=== PATIENT | female | born 1965 | race African-American/Black ===

== ENCOUNTER 2020-01-21 17:39 | Inpatient (IN) | payer MEDICAID ==
[~2020-01-21] VITALS: Ht 149.9 cm; Wt 66.6 kg
[~2020-01-21 17:39] MED LIST: DULO60CA7 PO; ESTR0.5T PO; METH750T2 PO; PREG25CA PO; ZOLP10TA PO
[2020-01-21] MEDS ORDERED: BISACODYL 10 MG SUPP PR PRN (18:00)
[2020-01-21] MEDS ORDERED: ACETAMINOPHEN 325 MG TABLET PO PRN (18:00)
[2020-01-21] MEDS ORDERED: POLYETHYLENE GLYCOL 17 GM PACKET PO PRN (18:00)
[2020-01-21 18:15] VITALS: BP 143/90
[2020-01-21 19:45] LABS: CHOL/HDL RATIO 3.5; FREE T4 (FREE THYROXINE) 1.34 ng/dL (0.76-1.46); LDL/HDL RATIO 2.2 (0.5-3.0)
[2020-01-21 20:31] VITALS: BP 150/95
[2020-01-21] MEDS ORDERED: DOCUSATE 100 MG CAPSULE PO PRN (21:00)
[2020-01-21] MEDS: ONDANSETRON ODT 4 MG PO PRN (21:14)
[2020-01-22 07:08] VITALS: BP 108/70
[2020-01-22] MEDS ORDERED: RIBO400T PO (07:36)
[2020-01-22] MEDS ORDERED: PANT40TA3 PO (07:36)
[2020-01-22] MEDS ORDERED: DIVA500T17 PO (07:36)
[2020-01-22] MEDS ORDERED: QUET50TA5 PO (07:36)
[2020-01-22] MEDS ORDERED: RIZA10TA20 PO (07:36)
[2020-01-22] MEDS ORDERED: DULO60CA7 PO (07:36)
[2020-01-22] MEDS ORDERED: METO10TA82 PO (07:36)
[2020-01-22] MEDS ORDERED: TIZA4TAB9 PO (07:36)
[2020-01-22] MEDS ORDERED: AMIT25TA PO (07:36)
[2020-01-22] MEDS ORDERED: CELE-47 PO (07:36)
[2020-01-22] MEDS ORDERED: HYDR-826 PO (07:36)
[2020-01-22] MEDS ORDERED: DICY20TA3 PO (07:36)
[2020-01-22] MEDS ORDERED: OMEP20TA62 PO (07:36)
[2020-01-22] MEDS ORDERED: RIZATRIPTAN 10MG TABLET PO PRN (08:30)
[2020-01-22] MEDS: ONDANSETRON ODT 4 MG PO PRN ×2 (11:33→20:58)
[2020-01-22] MEDS ORDERED: ONDA4TAB7 PO (11:41)
[2020-01-22 12:08] LABS: BASOPHILS # (AUTO) 0.07 x10^3/uL (0-0.1); BASOPHILS % (AUTO) 1 % (0-1); EOSINOPHILS # (AUTO) 0.18 x10^3/uL (0-0.4); EOSINOPHILS % (AUTO) 2 % (1-7); LYMPHOCYTES # (AUTO) 2.95 x10^3/uL (1-3.4); LYMPHOCYTES % (AUTO) 29 % (22-44); MD NO; MEAN CORPUSCULAR HEMOGLOBIN 29.2 pg (27.0-34.8); MEAN CORPUSCULAR HGB CONC 32.4 g/dL (32.4-35.8); MEAN CORPUSCULAR VOLUME 90.4 fL (80-100); MEAN PLATELET VOLUME 8.5 fL (7.4-10.4); MONOCYTES # (AUTO) 0.23 x10^3/uL (0.2-0.8); MONOCYTES % (AUTO) 2 % (2-9); NEUTROPHILS # (AUTO) 6.92 x10^3/uL (1.8-6.8); NEUTROPHILS % (AUTO) 67 % (42-75); PLATELET COUNT 391 x10^3/uL (130-400); RED BLOOD COUNT 5.28 x10^6/uL (3.82-5.3); RED CELL DISTRIBUTION WIDTH 15.1 % (9.6-15.2)
[2020-01-22 12:14] LABS: ANION GAP 11 mmol/L (5-15); CALCIUM 10.3 mg/dL (8.5-10.1); CHLORIDE 100 mmol/L (98-107)
[2020-01-22 12:15] LABS: CREATININE 1.16 mg/dL (0.55-1.02)
[2020-01-22] MEDS: DULOXETINE 30 MG CAPSULE.DR PO SCH (18:01)
[2020-01-22 19:59] VITALS: BP 132/79
[2020-01-22] MEDS: DIVALPROEX 500 MG TABLET.DR PO SCH (20:58)
[2020-01-22] MEDS: PANTOPROZOLE 40MG TABLET PO SCH (20:58)
[2020-01-22] MEDS: AMITRIPTYLINE 25 MG TABLET PO SCH (20:58)
[2020-01-23 07:15] VITALS: BP 108/73
[2020-01-23] MEDS: MELOXICAM 15 MG TABLET PO SCH (08:36)
[2020-01-23] MEDS: DIVALPROEX 500 MG TABLET.DR PO SCH ×2 (08:36→20:16)
[2020-01-23] MEDS: PANTOPROZOLE 40MG TABLET PO SCH ×2 (08:36→20:16)
[2020-01-23] MEDS: DULOXETINE 30 MG CAPSULE.DR PO SCH (08:36)
[2020-01-23 09:45] LABS: MICROSCOPIC NOT IND
[2020-01-23 09:47] LABS: CULTURE INDICATED? NO
[2020-01-23 19:34] VITALS: BP 117/80
[2020-01-23] MEDS: AMITRIPTYLINE 25 MG TABLET PO SCH (20:16)
[2020-01-24 07:31] VITALS: BP 103/70
[2020-01-24] MEDS: DULOXETINE 30 MG CAPSULE.DR PO SCH (08:54)
[2020-01-24] MEDS: DIVALPROEX 500 MG TABLET.DR PO SCH (08:54)
[2020-01-24] MEDS: PANTOPROZOLE 40MG TABLET PO SCH (08:54)
[2020-01-24] MEDS: MELOXICAM 15 MG TABLET PO SCH (08:58)
[2020-01-24] MEDS ORDERED: MELO15TA24 PO (14:56)
[2020-01-24] MEDS ORDERED: DIVA-61 PO (14:56)
[2020-01-24] MEDS ORDERED: DULO30CA2 PO (14:56)
== END 2020-01-24 19:00 | disposition home or self-care (01) | DRG 753 ==
LOC: 3E 18:25
PROVIDERS: ADMIT Psychiatry & Neurology Psychosomatic Medicine; ATTEND Psychiatry & Neurology Psychosomatic Medicine
DX: F31.30 Bipolar disorder, current episode depressed, mild or moderate severity, unspecified (principal); K22.2 Esophageal obstruction; F12.90 Cannabis use, unspecified, uncomplicated; F43.10 Post-traumatic stress disorder, unspecified; F17.200 Nicotine dependence, unspecified, uncomplicated; G43.909 Migraine, unspecified, not intractable, without status migrainosus; G89.29 Other chronic pain; K21.9 Gastro-esophageal reflux disease without esophagitis; M06.9 Rheumatoid arthritis, unspecified; M79.7 Fibromyalgia; F10.10 Alcohol abuse, uncomplicated; Z82.49 Family history of ischemic heart disease and other diseases of the circulatory system; M19.90 Unspecified osteoarthritis, unspecified site; Z79.899 Other long term (current) drug therapy; Z83.3 Family history of diabetes mellitus; Z82.5 Family history of asthma and other chronic lower respiratory diseases; Z91.5 Personal history of self-harm; Z90.49 Acquired absence of other specified parts of digestive tract; Z88.1 Allergy status to other antibiotic agents
CPT/HCPCS: 36415; 80048; 80061; 81003; 82140; 84439; 84443; 85025; 93005; Q0162

== ENCOUNTER 2021-06-25 15:50 | Inpatient (IN) | payer MEDICAID ==
[~2021-06-25] VITALS: Ht 160 cm; Wt 60.3 kg
[~2021-06-25 15:50] MED LIST changes: +AMIT25TA PO; +CELE-47 PO; +DICY20TA4 PO; +DIVA-61 PO; +DIVA500T17 PO; +DULO30CA2 PO; +HYDR-826 PO; +MELO15TA24 PO; +METH-640 PO; -METH750T2 PO; +METO10TA82 PO; +OMEP20TA62 PO; +ONDA4TAB7 PO; +PANT40TA3 PO; +QUET50TA5 PO; +RIBO400T PO; +RIZA10TA20 PO; +TIZA4TAB9 PO
--- NOTE | 2021-06-25 16:12 | NUR ---
THIS IS A 55 YEAR OLD FEMALE WHO WAS BIB AMBULANCE DUE TO BACLOFEN OD/SA. PT HAS HAD PREVIOUS ATTEMPTS SA. PT PLACED ON OXYGEN IN ROUTE DUE TO SAT 86%RA. PT OPENS EYES TO PAINFUL STIMULI. PT PLACED ON GREEN PROMOTIONS SPECIALIST TACY AT 100-110, CONTINOUS SP02 AT 99% AT 2LNC, AND CYCLE VS. DAUGHTER BRANDON CAUSEY AT BS. [phone], . PT HAS HAD PREVIOUS SI/SA ATTEMPT. PT CALLED MOTHER AND STATES SHE WAS GOING TO TODAY. INCREASE EMOTIONAL SUPPORT GIVEN.
--- NOTE | 2021-06-25 16:23 | NUR ---
Poison control called. Case # [id number].
[2021-06-25] MEDS ORDERED: BACL20TA PO (16:24)
--- NOTE | 2021-06-25 16:24 | NUR ---
SEIZURE PADS PLACED FOR SAFETY.
[2021-06-25 16:25] LABS: BASOPHILS % (AUTO) 1 % (0-1); EOSINOPHILS % (AUTO) 0 % (1-7); LYMPHOCYTES % (AUTO) 36 % (22-44); MEAN CORPUSCULAR HEMOGLOBIN 30.5 pg (27.0-34.8); MEAN CORPUSCULAR HGB CONC 33.2 g/dL (32.4-35.8); MEAN PLATELET VOLUME 8.5 fL (7.4-10.4); MONOCYTES % (AUTO) 3 % (2-9); NEUTROPHILS % (AUTO) 59 % (42-75); PLATELET COUNT 314 x10^3/uL (130-400); RED BLOOD COUNT 4.66 x10^6/uL (3.82-5.3); RED CELL DISTRIBUTION WIDTH 14.5 % (9.6-15.2)
[2021-06-25 16:31] LABS: ALANINE AMINOTRANSFERASE 25 U/L (12-78); ALBUMIN 4.1 g/dL (3.4-5.0); ANION GAP 16 mmol/L (5-15); CALCIUM 9.1 mg/dL (8.5-10.1); CHLORIDE 108 mmol/L (98-107); CREATININE 0.75 mg/dL (0.55-1.02)
[2021-06-25 16:33] LABS: ALKALINE PHOSPHATASE 128 U/L (45-117); BILIRUBIN,TOTAL 0.2 mg/dL (0.2-1.0); TOTAL PROTEIN 8.2 g/dL (6.4-8.2)
--- NOTE | 2021-06-25 16:37 | NUR ---
PT AWAKE, YELLING THAT HER BACK HURTS, PULLING ON LINES. ENCOURGE PATIENT TO RELAX, AND CALM DOWN. INCREASE EMOTIONAL SUPPORT.
[2021-06-25 16:38] LABS: AMPHETAMINE SCREEN, URINE Negative (Negative); BARBITURATE SCREEN, URINE Negative (Negative); BENZODIAZEPINE SCREEN, URINE Negative (Negative); CANNABINOID SCREEN, URINE Positive (Negative); COCAINE SCREEN, URINE Negative (Negative); METHADONE SCREEN, URINE Negative (Negative); OPIATE SCREEN, URINE Negative (Negative)
[2021-06-25 16:39] LABS: SALICYLATE LEVEL < 1.7 mg/dL (2.8-20.0)
--- NOTE | 2021-06-25 16:47 | NUR ---
PT TEARFUL, STATES SHE IS IN PAIN, SITTER AT BS, DAUGHTER AT BS.
--- NOTE | 2021-06-25 17:11 | NUR ---
PT ALERT AND ORIENTED X 4, SITTER AT BS, PT CONTINUES TO COMPLAIN ABOUT PAIN ISSUES. INCREASE EMOTIONAL SUPPORT GIVEN, UPDATED DR. CAUSEY OF ABOVE.
--- NOTE | 2021-06-25 17:33 | NUR ---
PT COMPATIVE AND RIPPED OUT IV, STATES, "I HAVE TO PEE". COMMODE AT BEDSIDE, PT REFUSED, GETTING OUT OF BED AND YELLING, THROWING HANDS AROUND WITH BLOOD DUE TO IV. SECURITY CALLED FOR ASSISTANCE
--- NOTE | 2021-06-25 17:44 | NUR ---
PT PLACED ON 4 POINT RESTRAINTS FOR SAFETY, PT SCREAMING AND YELLING CURSE WORDS"
[2021-06-25] MEDS ORDERED: LORazepam 2 MG/ML, 1ML ONE (17:50)
--- NOTE | 2021-06-25 17:53 | NUR ---
PT SHAKING, NON VERBAL, DR. CAUSYE IN ROOM ,ORDERED ATIVAN. MEDICATED PER MAR
[2021-06-25] MEDS ORDERED: LORazepam 2 MG/ML, 1ML IVPush ONE (18:00)
--- NOTE | 2021-06-25 18:03 | NUR ---
PT SLEEPING RESP EVEN AND UNLABORED, CO2 MONITOR 33. SITTER AT BS
--- NOTE | 2021-06-25 18:32 | NUR ---
RESTRAINTS OFF, PT SLEEPING.
--- NOTE | 2021-06-25 18:38 | NUR ---
SPOKE WITH DR. CAUSEY REGARDING B/P. ORDERS RECEIVED
--- NOTE | 2021-06-25 18:46 | NUR ---
REPORT TO DIRK, PLAN OF CARE DISCUSSED.
--- NOTE | 2021-06-25 18:54 | NUR ---
RECEIVED REPORT FROM OFFGOING RN, PT SLEEPING AT THIS TIME, SNORING, AIRWAY INTACT, GOOD AERATION AND OXYGENATION. PT OUT OF RESTRAINTS AT THIS TIME, AND HAS A PIV TO RIGHT AC INFUSING 1 LITER FLUID TO INCREASE THE BP. PULL TAB DEALER NOTIFIED AND WILL LOOK FOR A PSYCH ROOM TO MOVE PT TOO.
[2021-06-25] MEDS ORDERED: SODIUM CHLORIDE 0.9% 1,000ML IVBOLUS ONE (19:00)
--- NOTE | 2021-06-25 19:00 | NUR ---
PT HAS A 20G PIV TO RIGHT AC, AND IT IS INTACT. PT PULLED OUR HER PREVIOUS IV WHEN SHE WENT INTO A MANIC PHASE, CALLING STAFF NAMES AND CALLING THE RN'S "CRACKERS", AND THRASHING IN THE BED, AND ATTEMPTING TO FLING BLOOD AT STAFF. PT SLEEPING AT THIS TIME. SITTER AT BEDSIDE WITH EYES ON PT.
--- NOTE | 2021-06-25 19:50 | NUR ---
REPORT FROM DIRK RN PT TRANSFERED TO ROOM 38 AT THIS TIME WITH SITTER. PT RESTING RESP EVEN AND UNLABORED JORJE
--- NOTE | 2021-06-25 20:31 | NUR ---
PT CONTINUES TO REST SITTER IN LINE OF SIGHT NADN, RESP EVEN UNLABORED
--- NOTE | 2021-06-25 21:34 | NUR ---
PT RESTING [place] SITTER IN SIGHT NADN RESP EVEN UNLABORED
--- NOTE | 2021-06-25 22:20 | NUR ---
PT RESTING ON GURNEY NADN, RESP EVEN UNLABORED SITTER IN SIGHT, ERP TO BEDSIDE FOR EVAL, PT REMAINS SLEEPING SOUNDLY
--- NOTE | 2021-06-25 23:39 | NUR ---
SPOKE WITH POISON CONTROL, PT STATUS UPDATED. ALSO STS THAT BACLOFEN CAN LEAD TO AGGITATION. ALL QUESTIONS ADDRESSED STS WILL CALL LATER
--- NOTE | 2021-06-26 00:02 | NUR ---
PT RESTING ON [place] SITTER IN SIGHT NADN RESP EVEN UNLABORED
--- NOTE | 2021-06-26 01:00 | NUR ---
PT SLEEPING SOUNDLY ON CAROLE RECINOS RESP EVEN AND UNLABORED
--- NOTE | 2021-06-26 02:00 | NUR ---
PT SLEEPING SOUNDLY ON CAROLE RECINOS RESP EVEN AND UNLABORED
--- NOTE | 2021-06-26 03:32 | NUR ---
PT SLEEPING SOUNDLY ON [place] NAD[place] RESP EVEN AND UNLABORED, PT AWAKENS VERY BREIFLY TO PAINFUL STIMULI AT THIS TIME
--- NOTE | 2021-06-26 04:54 | NUR ---
PT SLEEPING SOUNDLY ON GURNEY NADN RESP EVEN AND UNLABORED, PT AWAKENS VERY BREIFLY TO PAINFUL STIMULI AT THIS TIME, SNORING RESP HEARD, PT REPOSITIONING SELF IN GURNEY AT THIS TIME
--- NOTE | 2021-06-26 07:40 | NUR ---
ASSUMING CARE AFTER REPORT FROM RACHEL CUEVAS. PT ASLEEP WITH EVEN AND UNLABORED RESPIRATIONS. VSS. RECINOS.
[2021-06-26] MEDS ORDERED: LORazepam 2 MG/ML, 1ML ONE ×2 (08:21→13:18)
[2021-06-26] MEDS ORDERED: LORazepam 2 MG/ML, 1ML IVPush ONE (09:00)
--- NOTE | 2021-06-26 09:01 | NUR ---
PT WOKE UP AND WAS FOUND THRASHING AND THROWING SELF AROUND IN BED. PT ATTEMPTING TO THROW BODY OVER BED RAILS. PT THEN ATTEMPTED TO HIT AND GRAB THIS RN WHEN RN ATTEMPTING TO REORIENT PT. PT NON COMPLIANT AND NON REDIRECTIABLE. PT MEDICATED PER EMAR. SECURITY CALLED TO AID IN MEDICATION ADMISTRATION. PT PLACED IN [address] SHULTZ. WILL CONTINUE TO MONITOR CLOSELY. PT ATTACHED TO MONITORS. SITTER AT BEDSIDE AND SAFETY PRECAUTIONS IN PLACE.
--- NOTE | 2021-06-26 09:22 | NUR ---
4 POINT RESTRAINTS REMOVED. PT ASLEEP WITH EVEN AND UNLABORED RESPIRATIONS. ATTACHED TO MONITOR. VSS. SITTER AT BEDSIDE AND SAFETY PRECAUTIONS IN PLACE.
--- NOTE | 2021-06-26 10:12 | NUR ---
PT ASLEEP WITH EVEN AND UNLABORED RESPIRATIONS. NADN. SAFETY PRECAUTIONS IN PLACE.
--- NOTE | 2021-06-26 10:56 | NUR ---
pt urinated and had bm in bed while thrashing around. this rn cleaned pt and provided new gown and changed linen.
[2021-06-26] MEDS ORDERED: ETOMIDATE 20 MG/10 ML ONE (11:17)
[2021-06-26] MEDS ORDERED: PROPOFOL 10 MG/ML, 100ML IV ONE (11:17)
--- NOTE | 2021-06-26 11:22 | NUR ---
PT ASLEEP WITH EVEN AND UNLABORED RESPIRATIONS. NADN. SAFETY PRECAUTIONS IN PLACE.
[2021-06-26] MEDS ORDERED: HALOPERIDOL 5 MG/ML ONE ×2 (11:38→13:17)
[2021-06-26] MEDS ORDERED: HALOPERIDOL 5 MG/ML IV ONE (12:00)
--- NOTE | 2021-06-26 12:01 | NUR ---
PT WOKE UP AGIATED. BANGING HEAD AGAINST RAIL AND THRASHING AROUND. DR. SHULTZ TO BEDSIDE. SECURITY CALLED. PT PLACED IN 4 POINT RESTRAINTS ORDERED AND MEDICATED PER EMAR. PT ATTACHED TO MONITOR. SITTER AT BEDSIDE. SAFETY PRECAUTIONS IN PLACE.
--- NOTE | 2021-06-26 12:11 | NUR ---
SITTER AT BEDSIDE. SAFETY PRECAUTIONS IN PLACE.
[2021-06-26] MEDS ORDERED: HALOPERIDOL 5 MG/ML IM PRN ×2 (13:00)
[2021-06-26] MEDS ORDERED: DIPHENHYDRAMINE 50 MG/ML, 1ML IM PRN (13:00)
[2021-06-26] MEDS ORDERED: DIPHENHYDRAMINE 50 MG/ML, 1ML ONE (13:17)
[2021-06-26] MEDS: LORazepam 2 MG/ML, 1ML IM PRN (14:02)
--- NOTE | 2021-06-26 14:02 | NUR ---
PT SEVERELY AGITATED. BANGING HEAD AGAINST BED RAILING. SCREAMING. PT MEDICATED PER MAR. PLACED ON HOISTMAN
--- NOTE | 2021-06-26 14:03 | NUR ---
PSA OUTSIDE OF ROOM WITH CLEAR LINE OF SIGHT
--- NOTE | 2021-06-26 14:22 | NUR ---
PT RESTING IN [facility]. AGITATION HAS IMPROVED.
--- NOTE | 2021-06-26 15:46 | NUR ---
PT SLEEPS FOR 10-15 MINUTE PERIODS AND WHEN SHE WAKES UP SHE IS VERY AGITATED AND CONFUSED. NOT DIRECTABLE. TRIES TO BITE STAFF. PT REMAINS IN RESTRAINTS.
--- NOTE | 2021-06-26 16:30 | NUR ---
ATTEMPTED TO GIVE PT WATER PO. PT TO INCOHERENT TO DRINK
--- NOTE | 2021-06-26 17:24 | NUR ---
SEVERAL ATTEMPTS MADE TO HAVE PT DRINK WATER. PT HAS BEEN UNABLE TO DRINK DUE TO HER LOC. PT HAS NOT ATE OR DRANK ALL DAY. MD SARMIENTO HAS BEEN NOTIFIED OF THE SITUATION.
[2021-06-26 18:02] LABS: MEAN CORPUSCULAR HEMOGLOBIN 30.2 pg (27.0-34.8); MEAN PLATELET VOLUME 8.1 fL (7.4-10.4); PLATELET COUNT 283 x10^3/uL (130-400); RED BLOOD COUNT 4.49 x10^6/uL (3.82-5.3); RED CELL DISTRIBUTION WIDTH 14.6 % (9.6-15.2)
[2021-06-26 18:11] LABS: ALANINE AMINOTRANSFERASE 30 U/L (12-78); ALBUMIN 4.1 g/dL (3.4-5.0); ANION GAP 16 mmol/L (5-15); CALCIUM 9.7 mg/dL (8.5-10.1); CHLORIDE 117 mmol/L (98-107); CREATININE 1.02 mg/dL (0.55-1.02)
[2021-06-26 18:13] LABS: ALKALINE PHOSPHATASE 118 U/L (45-117); BILIRUBIN,TOTAL 0.8 mg/dL (0.2-1.0); TOTAL PROTEIN 7.8 g/dL (6.4-8.2)
[2021-06-26 18:30] LABS: BANDS%(MANUAL) 10 % (0-7); LYMPH#(MANUAL) 1.26 x10^3/uL (1-3.4); LYMPHS% (MANUAL) 6 % (22-44); MONOS#(MANUAL) 0.42 x10^3/uL (0.3-2.7); MONOS% (MANUAL) 2 % (2-9); SEG#(MANUAL) 17.22 x10^3/uL (1.8-6.8); SEGS% (MANUAL) 82 % (42-75)
[2021-06-26 18:31] LABS: <PLATELET ESTIMATE> ADEQUATE; <PLT MORPHOLOGY> NORMAL PLT MORPH; <RBC MORPHOLOGY> NORMAL
--- NOTE | 2021-06-26 19:04 | NUR ---
PATIENT MOVED TO T4 FROM ROOM 3. REPORT GIVEN TO DIRK RN ABOUT PATIENT.
--- NOTE | 2021-06-26 19:06 | NUR ---
RECEIVED PT AT THIS TIME, PT IS ON 4 POINT RESTRAINTS AND IS NOW AWAKE AND TRYING TO THRASH IN BED, AND FIGHTING THE RESTRAINTS. PT ON O2 NC AT 2LPM.
--- NOTE | 2021-06-26 19:10 | NUR ---
PT HAS NO IV ACCESS AT THIS TIME SHE RIPS THE IVS OUT. PT IS NOT RESPONDING TO VERBAL STIMULI AND IS ONLY TRYING TO GET UP IN BED, PER THE REPORT THE PT HASNT EATEN OR DRANK ANYTHING ALL DAY, PT REFUSES, AND HAS NO IV IN PLACE. PTS EYES ARE CLOSED AND SHE DOES NOT COHERENTLY RESPOND TO THE RN. PT IS NOW IN TR4 ROOM, FOR ESCALATED CARE, DR CAUSEY IS AWARE, AND AWAITING NEW ORDERS.
--- NOTE | 2021-06-26 19:19 | NUR ---
PT INTERMITTENTLY CALMS AND LIES STILL, BUT THEN BEGINS THRASHING AGAIN, AND WHEN ASKED IF SHE KNOWS WHERE SHE IS SHE DOES NOT RESPOND, WHEN ASKED WHAT THE DATE IS OR IF SHE KNOWS HER NAME, PT ONLY THRASHES AROUND AND DOESN'T RESPOND. TO ROOM
[2021-06-26] MEDS ORDERED: PROPOFOL 100 ML IV SCH (19:49)
--- NOTE | 2021-06-26 19:55 | NUR ---
PTS PROPOFOL, PER MD VERBALIZED BACK VERBAL ORDER, INCREASING THE PROPOFOL TO MAINTAIN SEDATION LONG THE BP MAINTAINS. PT ESCALATED TO 60MCG/KG/MIN AND PT IS STILL TRYING TO GET UP OFF THE BED, PT HAS SOFT WRIST RESTRAINTS NOW PLACED AT 1945, AND HARD WRIST RESTRAINTS REMOVED BY SECURITY AT 1940.
[2021-06-26] MEDS ORDERED: SODIUM CHLORIDE FLUSH 10ML SYR IVF ONE (20:00)
[2021-06-26] MEDS ORDERED: ETOMIDATE 20 MG/10 ML IVPush ONE (20:00)
[2021-06-26] MEDS ORDERED: SODIUM CHLORIDE 0.9% 1,000ML IVBOLUS ONE (20:00)
[2021-06-26] MEDS ORDERED: MIDAZOLAM 1 MG/ML, 2ML ONE (20:03)
--- NOTE | 2021-06-26 20:16 | NUR ---
AT THIS TIME, PT TRIED TO SIT UP IN BED, AND ATTEMPTING TO GRAB AT TUBES AND IV'S. ATTEMPTING TO REORIENT PT TO SITUATION AND TO CALM DOWN, BUT PT IS NOT COHERENT, SHE HAS NOT BEEN FOR SOME TIME. ON FURTHER ASSESMENT, WHEN PT IS CALM, PTS AIRWAY IS INTACT, WITH GOOD AERATION AND OXYGENATION.
[2021-06-26] MEDS ORDERED: FENTANYL PF 100 MCG/2ML IVPush PRN ×2 (20:30→21:00)
[2021-06-26] MEDS ORDERED: CEFTRIAXONE 1,000 MG in DEXTROSE 5% 50 ML IVPB ONE (20:30)
[2021-06-26] MEDS ORDERED: HYDROmorphone 2 MG/ML, 1ML IVPush PRN (20:30)
[2021-06-26] MEDS ORDERED: VANCOMYCIN PER PHARMACY MC PRN (20:30)
[2021-06-26] MEDS ORDERED: MIDAZOLAM 1 MG/ML, 2ML IVPush ONE (20:30)
[2021-06-26] MEDS ORDERED: SENNA 176 MG/5 ML ORAL SOL NG PRN (20:30)
[2021-06-26] MEDS ORDERED: SENNA/DOCUSATE TABLET NG PRN (20:30)
[2021-06-26] MEDS ORDERED: LACTULOSE 20 GM/30 ML UDC NG PRN (20:30)
[2021-06-26] MEDS ORDERED: PHARMACY MAY ADJ FOR RENAL FX MC SCH (20:30)
[2021-06-26] MEDS ORDERED: ONDANSETRON 2MG/ML, 2ML IVPush PRN (20:30)
[2021-06-26] MEDS ORDERED: DEXTROSE 4 GM TAB.CHEW PO PRN (20:30)
[2021-06-26] MEDS ORDERED: BISACODYL 10 MG SUPP PR PRN (20:30)
[2021-06-26] MEDS ORDERED: LIDOCAINE-MPF 1%, 2ML ENDO PRN ×2 (20:30→21:00)
[2021-06-26] MEDS ORDERED: LACTATED RINGERS 1,000 ML IV SCH (20:30)
[2021-06-26] MEDS ORDERED: GLUCAGON 1 MG IM PRN (20:30)
[2021-06-26] MEDS ORDERED: MIDAZOLAM 1 MG/ML, 2ML IVPush PRN (20:30)
[2021-06-26] MEDS ORDERED: DEXTROSE 50%, 50ML SYRINGE IVPush PRN (20:30)
[2021-06-26] MEDS ORDERED: LABETALOL 5MG/ML, 20ML IVPush PRN (20:30)
[2021-06-26] MEDS ORDERED: HALOPERIDOL 5 MG/ML IVPush PRN (20:30)
--- NOTE | 2021-06-26 20:34 | NUR ---
AT THIS TIME, PT TRYING TO SIT UP IN BED, AND PULLING ON ARMS, AND HAS SOFT LIMB RESTRAINTS TO ALL 4 EXTREMITIES STILL. FURTHER ASSESMENT OF THE LIMBS SHOWS THAT PT HAS RUBBED HER ARMS AND LEGS RED FROM PULLING AND THRASHING ON THE LEATHER RESTRAINTS. THOSE WERE REMOVED AND PT IS ON SOFT WRIST RESTRAINTS WITH SEDATION AND STILL CONTINUES TO SIT UP AND GRAB AT TUBES AND IV'S. MADE AWARE AND SHOWN PT IS TRYING TO SIT UP. PT HAD CAMPBELL WITH TEMP PROBE PLACED WHEN SHE WAS WELL SEDATED AND HAS A 16FR CATH IN PLACE WITH CLEAR YELLOW URINE OUT, AND SAMPLE SENT TO LAB. PT NOW HAS 3 IV'S. LEFT HAND, LEFT FOOT, AND RIGHT FOREARM. SEE NOTES.
[2021-06-26 20:42] LABS: MICROSCOPIC AUTO
--- NOTE | 2021-06-26 20:54 | NUR ---
CUFF RUNNER TO BEDSIDE TO DRAW BLOOD CULTURES X2, AND ABG. PT TOLERATED, BUT WHEN ABG BEING DRAWN, PT WOKE UP AND KEEPS TRYING TO SIT UP IN BED. ATTEMPTS TO REORIENT PT AND CALM HER VERBALLY DON'T WORK. PT REMAINS IN SOFT LIMB RESTRAINTS X4 ESTREMITIES AT THIS TIME. POSITIVE PULSES AND CMS INTACT, WITH ROUSTABOUT CREW LEADER <2SECONDS.
[2021-06-26] MEDS: INSULIN LISPRO 100 UNITS/ML, PEN SQ-INSULIN SCH (21:00)
[2021-06-26] MEDS: SODIUM CHLORIDE FLUSH 10ML SYR IVF SCH (21:00)
[2021-06-26] MEDS: DIVALPROEX 500 MG TAB.ER.24H PO SCH (21:00)
--- NOTE | 2021-06-26 21:25 | NUR ---
PT TAKEN TO CT SCAN, AND DONE WITH MINIMAL ISSUE. PT DID TRY TO SIT UP 2 TIMES WHILE TRANSFERRING TO THE CT SCANNER. PT REMAINED CALM DURING PROCEDURE, AND BACK TO ER TR4.
--- NOTE | 2021-06-26 21:50 | NUR ---
MEDS INFUSING, PT REMAINS CALM AT THIS TIME, ON CR MONITOR, AND NETWORK TECHNOLOGY INSTRUCTOR TO BEDSIDE TO DRAW MORE BLOOD. ALL PIV'S ARE INTACT, AND SOFT AND FLAT AND SECURED WELL, AND FLUSH EASILY, WITH NO SIGNS OF INFILTRATION.
[2021-06-26] MEDS ORDERED: ENOXAPARIN 40 MG/0.4 ML ONE (22:07)
[2021-06-26] MEDS: ENOXAPARIN 40 MG/0.4 ML SQ SCH (22:08)
[2021-06-26] MEDS ORDERED: PROPOFOL 100 ML IV ONE (22:09)
[2021-06-26] MEDS ORDERED: FAMOTIDINE 20 MG/2 ML ONE (22:09)
[2021-06-26] MEDS: FAMOTIDINE 20 MG/2 ML IVPush SCH (22:10)
[2021-06-26 22:17] LABS: TRIGLYCERIDES 135 mg/dL (50-200)
[2021-06-26 22:33] LABS: TROPONIN I 0.296 ng/mL (0.000-0.045)
[2021-06-26] MEDS ORDERED: VANCOMYCIN 1,600 MG in SODIUM CHLORIDE 0.9% 250 ML IV ONE (23:00)
[2021-06-26] MEDS: MIDAZOLAM HCL 50 MG in SODIUM CHLORIDE 0.9% 40 ML IV PRN (23:00)
[2021-06-26] MEDS: CEFEPIME 1 GM in DEXTROSE 5% 50 ML IV SCH (23:02)
--- NOTE | 2021-06-26 23:02 | NUR ---
REPORT CALLED TO TOLU RN, AND PT TO BE TRANSFERRED TO ICU 541.
--- NOTE | 2021-06-26 23:15 | NUR ---
PT MOVED TO ICU BED 541, WITH RT AND LANGUAGE AND LITERATURE DIVISION CHAIR ASSISTING, PT REMAINS ON TRANSPORT VENTILATOR, AND ON CR MONITOR. ALL IV'S INTACT AND INFUSING MEDS. VANCOMYCIN MED BAG TAKEN TO ICU WITH PT, FOR ADMINISTRATION AFTER THE MAXIPIME. PT CARE TRANSFERRED TO ICU.
[2021-06-26] MEDS ORDERED: PHARMACOKINETIC MONITORING MC PRN (23:45)
[2021-06-26] MEDS ORDERED: PHARMACOKINETIC CONSULTATION MC ONE (23:45)
[2021-06-27] MEDS: MIDAZOLAM HCL 50 MG in SODIUM CHLORIDE 0.9% 40 ML IV PRN (01:43)
[2021-06-27 02:10] LABS: BASOPHILS % (AUTO) 1 % (0-1); EOSINOPHILS % (AUTO) 0 % (1-7); LYMPHOCYTES % (AUTO) 15 % (22-44); MEAN CORPUSCULAR HEMOGLOBIN 30.2 pg (27.0-34.8); MONOCYTES % (AUTO) 4 % (2-9); NEUTROPHILS % (AUTO) 80 % (42-75); PLATELET COUNT 243 x10^3/uL (130-400); RED CELL DISTRIBUTION WIDTH 14.1 % (9.6-15.2)
[2021-06-27 02:20] LABS: ANION GAP 8 mmol/L (5-15); CHLORIDE 119 mmol/L (98-107); CREATININE 0.68 mg/dL (0.55-1.02); TRIGLYCERIDES 120 mg/dL (50-200)
[2021-06-27 02:23] LABS: TROPONIN I 0.511 ng/mL (0.000-0.045)
[2021-06-27] MEDS: PROPOFOL 100 ML IV PRN ×3 (05:28→22:20)
[2021-06-27] MEDS: INSULIN LISPRO 100 UNITS/ML, PEN SQ-INSULIN SCH ×2 (06:09→20:55)
[2021-06-27] MEDS: CEFEPIME 1 GM in DEXTROSE 5% 50 ML IV SCH ×3 (06:09→22:32)
[2021-06-27] MEDS: MIDAZOLAM HCL 100 MG in SODIUM CHLORIDE 0.9% 80 ML IV PRN (06:34)
[2021-06-27] MEDS: DULOXETINE 30 MG CAPSULE.DR PO SCH (09:00)
[2021-06-27] MEDS: DIVALPROEX 500 MG TAB.ER.24H PO SCH ×2 (09:00→20:55)
[2021-06-27] MEDS: FAMOTIDINE 20 MG/2 ML IVPush SCH ×2 (10:40→20:55)
[2021-06-27] MEDS: SODIUM CHLORIDE FLUSH 10ML SYR IVF SCH ×2 (10:40→20:54)
[2021-06-27] MEDS ORDERED: INSULIN LISPRO 100 UNITS/ML, PEN SQ-INSULIN SCH (13:00)
[2021-06-27] MEDS ORDERED: SODIUM CHLORIDE 0.9%, 500ML IVBOLUS ONE (14:00)
[2021-06-27] MEDS: VANCOMYCIN 1,200 MG in SODIUM CHLORIDE 0.9% 250 ML IV SCH (15:11)
[2021-06-27] MEDS: LACTATED RINGERS 1,000 ML IV SCH (20:18)
[2021-06-27] MEDS: ENOXAPARIN 40 MG/0.4 ML SQ SCH (20:54)
[2021-06-28] MEDS: VANCOMYCIN 1,200 MG in SODIUM CHLORIDE 0.9% 250 ML IV SCH (02:49)
[2021-06-28] MEDS: INSULIN LISPRO 100 UNITS/ML, PEN SQ-INSULIN SCH ×4 (03:00→21:38)
[2021-06-28 03:23] LABS: BASOPHILS % (AUTO) 1 % (0-1); EOSINOPHILS % (AUTO) 1 % (1-7); LYMPHOCYTES % (AUTO) 21 % (22-44); MEAN CORPUSCULAR HEMOGLOBIN 30.7 pg (27.0-34.8); MEAN CORPUSCULAR HGB CONC 33.7 g/dL (32.4-35.8); MEAN PLATELET VOLUME 8.3 fL (7.4-10.4); MONOCYTES % (AUTO) 3 % (2-9); NEUTROPHILS % (AUTO) 74 % (42-75); PLATELET COUNT 208 x10^3/uL (130-400); RED BLOOD COUNT 3.81 x10^6/uL (3.82-5.3); RED CELL DISTRIBUTION WIDTH 14.2 % (9.6-15.2)
[2021-06-28 04:03] LABS: ANION GAP 8 mmol/L (5-15); CALCIUM 8.8 mg/dL (8.5-10.1); CHLORIDE 115 mmol/L (98-107); CREATININE 0.44 mg/dL (0.55-1.02)
[2021-06-28] MEDS: MIDAZOLAM HCL 100 MG in SODIUM CHLORIDE 0.9% 80 ML IV PRN (05:21)
[2021-06-28] MEDS: PROPOFOL 100 ML IV PRN ×2 (05:22→23:40)
[2021-06-28] MEDS ORDERED: SODIUM PHOSPHATE 10 MMOL in SODIUM CHLORIDE 0.9% 500 ML IV ONE (06:30)
[2021-06-28] MEDS: CEFEPIME 1 GM in DEXTROSE 5% 50 ML IV SCH ×3 (06:33→23:03)
[2021-06-28] MEDS: DULOXETINE 30 MG CAPSULE.DR PO SCH (07:40)
[2021-06-28] MEDS: DIVALPROEX 500 MG TAB.ER.24H PO SCH ×2 (07:40→21:44)
[2021-06-28] MEDS: POTASSIUM CHLORIDE 20 MEQ PACKET PO SCH ×2 (08:05→17:28)
[2021-06-28] MEDS: SODIUM CHLORIDE FLUSH 10ML SYR IVF SCH ×2 (08:05→21:44)
[2021-06-28] MEDS: FAMOTIDINE 20 MG/2 ML IVPush SCH ×2 (08:05→21:44)
[2021-06-28] MEDS: LACTATED RINGERS 1,000 ML IV SCH ×2 (08:11→21:45)
--- NOTE | 2021-06-28 10:24 | NUR ---
IF TUBE feeds ordered:Recommend Promote goal on propofol: 45 ml/hr, off propofol: 55 ml/hr Addendum: 06/28/21 at [address] Amended: Links added.
[2021-06-28] MEDS: LORazepam 2 MG/ML, 1ML IM PRN (19:38)
[2021-06-28] MEDS: ENOXAPARIN 40 MG/0.4 ML SQ SCH (20:10)
[2021-06-29] MEDS: INSULIN LISPRO 100 UNITS/ML, PEN SQ-INSULIN SCH ×4 (02:39→21:00)
[2021-06-29 04:30] LABS: BASOPHILS % (AUTO) 2 % (0-1); EOSINOPHILS % (AUTO) 3 % (1-7); LYMPHOCYTES % (AUTO) 27 % (22-44); MEAN CORPUSCULAR HEMOGLOBIN 30.5 pg (27.0-34.8); MEAN CORPUSCULAR HGB CONC 33.7 g/dL (32.4-35.8); MEAN PLATELET VOLUME 8.3 fL (7.4-10.4); MONOCYTES % (AUTO) 3 % (2-9); NEUTROPHILS % (AUTO) 65 % (42-75); PLATELET COUNT 230 x10^3/uL (130-400); RED BLOOD COUNT 4.11 x10^6/uL (3.82-5.3)
[2021-06-29 04:39] LABS: ANION GAP 9 mmol/L (5-15); CALCIUM 9.1 mg/dL (8.5-10.1); CHLORIDE 108 mmol/L (98-107); CREATININE 0.42 mg/dL (0.55-1.02); TRIGLYCERIDES 172 mg/dL (50-200)
[2021-06-29] MEDS: CEFEPIME 1 GM in DEXTROSE 5% 50 ML IV SCH ×3 (06:35→23:15)
[2021-06-29] MEDS: DULOXETINE 30 MG CAPSULE.DR PO SCH (07:39)
[2021-06-29] MEDS: DIVALPROEX 500 MG TAB.ER.24H PO SCH (07:39)
[2021-06-29] MEDS: SODIUM CHLORIDE FLUSH 10ML SYR IVF SCH ×2 (07:46→21:29)
[2021-06-29] MEDS: POTASSIUM CHLORIDE 20 MEQ PACKET PO SCH ×2 (07:55→15:42)
[2021-06-29] MEDS: FAMOTIDINE 20 MG/2 ML IVPush SCH ×2 (07:55→21:29)
[2021-06-29] MEDS: LACTATED RINGERS 1,000 ML IV SCH ×2 (07:56→12:14)
[2021-06-29] MEDS: VALPROIC ACID 250 MG CAPSULE PO SCH ×3 (09:00→21:29)
[2021-06-29] MEDS: ONDANSETRON 2MG/ML, 2ML IV PRN (15:49)
[2021-06-29 18:44] VITALS: BP 144/82
[2021-06-29] MEDS: ENOXAPARIN 40 MG/0.4 ML SQ SCH (21:29)
[2021-06-30 00:22] VITALS: BP 114/66
[2021-06-30] MEDS: INSULIN LISPRO 100 UNITS/ML, PEN SQ-INSULIN SCH ×4 (03:00→21:29)
[2021-06-30] MEDS: VALPROIC ACID 250 MG CAPSULE PO SCH ×4 (03:21→21:28)
[2021-06-30] MEDS: CEFEPIME 1 GM in DEXTROSE 5% 50 ML IV SCH ×2 (06:26→14:38)
[2021-06-30] MEDS: LACTATED RINGERS 1,000 ML IV SCH (06:29)
[2021-06-30 07:13] VITALS: BP 110/76
[2021-06-30 07:36] LABS: ANION GAP 5 mmol/L (5-15); CALCIUM 9.8 mg/dL (8.5-10.1); CHLORIDE 107 mmol/L (98-107); CREATININE 0.45 mg/dL (0.55-1.02)
[2021-06-30] MEDS: DULOXETINE 30 MG CAPSULE.DR PO SCH (08:41)
[2021-06-30] MEDS: FAMOTIDINE 20 MG/2 ML IVPush SCH (08:41)
[2021-06-30] MEDS: SODIUM CHLORIDE FLUSH 10ML SYR IVF SCH ×2 (08:42→21:28)
[2021-06-30 13:18] VITALS: BP 111/68
[2021-06-30] MEDS: LEVOFLOXACIN 750 MG TABLET PO SCH (16:51)
[2021-06-30 18:42] VITALS: BP 128/79
[2021-06-30] MEDS ORDERED: FAMOTIDINE 20 MG TABLET PO SCH (21:00)
[2021-06-30] MEDS: ENOXAPARIN 40 MG/0.4 ML SQ SCH (21:28)
[2021-07-01 00:41] VITALS: BP 122/82
[2021-07-01] MEDS: VALPROIC ACID 250 MG CAPSULE PO SCH ×3 (02:37→14:28)
[2021-07-01] MEDS: INSULIN LISPRO 100 UNITS/ML, PEN SQ-INSULIN SCH ×3 (02:38→16:32)
[2021-07-01] MEDS: ONDANSETRON 2MG/ML, 2ML IV PRN (05:18)
[2021-07-01 05:47] LABS: BASOPHILS % (AUTO) 1 % (0-1); EOSINOPHILS % (AUTO) 6 % (1-7); LYMPHOCYTES % (AUTO) 40 % (22-44); MEAN CORPUSCULAR HEMOGLOBIN 30.7 pg (27.0-34.8); MEAN CORPUSCULAR HGB CONC 33.7 g/dL (32.4-35.8); MEAN PLATELET VOLUME 9.1 fL (7.4-10.4); MONOCYTES % (AUTO) 7 % (2-9); NEUTROPHILS % (AUTO) 46 % (42-75); PLATELET COUNT 244 x10^3/uL (130-400); RED BLOOD COUNT 4.52 x10^6/uL (3.82-5.3)
[2021-07-01 05:53] LABS: CHLORIDE 104 mmol/L (98-107)
[2021-07-01 06:15] LABS: ALANINE AMINOTRANSFERASE 42 U/L (12-78); ALBUMIN 3.1 g/dL (3.4-5.0); ALKALINE PHOSPHATASE 97 U/L (45-117); ANION GAP 9 mmol/L (5-15); BILIRUBIN,TOTAL 0.4 mg/dL (0.2-1.0); CALCIUM 10.1 mg/dL (8.5-10.1); TOTAL PROTEIN 7.7 g/dL (6.4-8.2)
[2021-07-01 07:48] VITALS: BP 108/75
[2021-07-01] MEDS: DULOXETINE 30 MG CAPSULE.DR PO SCH (10:09)
[2021-07-01] MEDS: SODIUM CHLORIDE FLUSH 10ML SYR IVF SCH (10:09)
[2021-07-01] MEDS: ACETAMINOPHEN 325 MG TABLET PO PRN ×2 (10:13→16:32)
[2021-07-01 13:50] VITALS: BP 138/97
[2021-07-01] MEDS ORDERED: HYDR-826 PO (15:52)
[2021-07-01] MEDS ORDERED: DULO30CA2 PO (15:52)
[2021-07-01] MEDS ORDERED: VALP250C59 PO (15:52)
[2021-07-01] MEDS: LEVOFLOXACIN 750 MG TABLET PO SCH (16:32)
== END 2021-07-01 17:50 | DRG 720 ==
LOC: ED 17:50 → EDIP 17:58 → ED 18:43 → CCU 06-26 23:12 → 4WST 06-29 18:32
PROVIDERS: ADMIT Emergency Medicine; ATTEND Internal Medicine
PROC: 0T9B70Z Drainage of Bladder with Drainage Device, Via Natural or Artificial Opening (ICD-10-PCS; principal; 2021-06-26)
PROC: 5A1945Z Respiratory Ventilation, 24-96 Consecutive Hours (ICD-10-PCS; 2021-06-26)
PROC: 0BH17EZ Insertion of Endotracheal Airway into Trachea, Via Natural or Artificial Opening (ICD-10-PCS; 2021-06-26)
DX: A41.9 Sepsis, unspecified organism (principal); J96.01 Acute respiratory failure with hypoxia; I21.A1 Myocardial infarction type 2; G93.41 Metabolic encephalopathy; T42.8X2A Poisoning by antiparkinsonism drugs and other central muscle-tone depressants, intentional self-harm, initial encounter; Z99.11 Dependence on respirator [ventilator] status; Z91.5 Personal history of self-harm; T42.8X1A Poisoning by antiparkinsonism drugs and other central muscle-tone depressants, accidental (unintentional), initial encounter; Z78.1 Physical restraint status; M79.7 Fibromyalgia; D32.9 Benign neoplasm of meninges, unspecified; E16.2 Hypoglycemia, unspecified; F10.220 Alcohol dependence with intoxication, uncomplicated; F12.90 Cannabis use, unspecified, uncomplicated; F17.210 Nicotine dependence, cigarettes, uncomplicated; F23 Brief psychotic disorder; F31.9 Bipolar disorder, unspecified; F41.1 Generalized anxiety disorder; G43.909 Migraine, unspecified, not intractable, without status migrainosus; G44.209 Tension-type headache, unspecified, not intractable; M06.9 Rheumatoid arthritis, unspecified; M19.90 Unspecified osteoarthritis, unspecified site; Z91.410 Personal history of adult physical and sexual abuse; Y92.89 Other specified places as the place of occurrence of the external cause
CPT/HCPCS: 36415; 36600; 70450; 71045; 80048; 80053; 80299; 80307; 80320; 80329; 81001; 82140; 82803; 82962; 83605; 83735; 84100; 84443; 84478; 84484; 85025; 87040; 87070; 87077; 87081; 87186; 87205; 93005; 93306; 93356; 94002; 94003; 99285; G0378; J0692; J0696; J1650; J2250; J2405; J2704; J3010; J3370; G0480; J1200; J1630; J2060; J7030; J7040; J7050; J7120; Q0177

== ENCOUNTER 2021-07-01 15:22 | Inpatient (IN) | payer MEDICAID ==
[~2021-07-01] VITALS: Ht 149.9 cm; Wt 54.7 kg
[~2021-07-01 15:22] MED LIST changes: +BACL20TA PO
[2021-07-01] MEDS ORDERED: VALP250C59 PO (15:52)
[2021-07-01] MEDS ORDERED: HYDR-826 PO (15:52)
[2021-07-01] MEDS ORDERED: DULO30CA2 PO (15:52)
[2021-07-01] MEDS ORDERED: DOCUSATE 100 MG CAPSULE PO PRN (16:00)
[2021-07-01] MEDS ORDERED: ONDANSETRON ODT 4 MG PO PRN (16:00)
[2021-07-01] MEDS ORDERED: BISACODYL 10 MG SUPP PR PRN (16:00)
[2021-07-01] MEDS ORDERED: ACETAMINOPHEN 325 MG TABLET PO PRN (16:00)
[2021-07-01] MEDS ORDERED: POLYETHYLENE GLYCOL 17 GM PACKET PO PRN (16:00)
[2021-07-01 17:59] VITALS: BP 121/83
[2021-07-01] MEDS ORDERED: PLEASE ENTER HEIGHT AND WEIGHT MC SCH (18:30)
[2021-07-01 19:32] VITALS: BP 129/87
[2021-07-01] MEDS: VALPROIC ACID 250 MG CAPSULE PO SCH (21:26)
[2021-07-02] MEDS: VALPROIC ACID 250 MG CAPSULE PO SCH ×2 (02:44→09:18)
[2021-07-02 06:57] LABS: LDL/HDL RATIO 2.6 (0.5-3.0)
[2021-07-02 07:09] VITALS: BP 108/71
[2021-07-02] MEDS ORDERED: DULOXETINE 30 MG CAPSULE.DR PO SCH (09:00)
[2021-07-02 19:47] VITALS: BP 119/79
[2021-07-02] MEDS: ATORVASTATIN 20 MG TABLET PO SCH (20:08)
[2021-07-02] MEDS: DIVALPROEX 250 MG TABLET.DR PO SCH (20:08)
[2021-07-03 07:20] VITALS: BP 116/74
[2021-07-03] MEDS: DIVALPROEX 250 MG TABLET.DR PO SCH ×2 (08:26→20:29)
[2021-07-03] MEDS: SERTRALINE 50MG TABLET PO SCH (08:26)
[2021-07-03 08:56] LABS: ALBUMIN 3.7 g/dL (3.4-5.0); ANION GAP 9 mmol/L (5-15); CALCIUM 9.9 mg/dL (8.5-10.1); CHLORIDE 99 mmol/L (98-107)
[2021-07-03 08:59] LABS: ALANINE AMINOTRANSFERASE 32 U/L (12-78); ALKALINE PHOSPHATASE 94 U/L (45-117); BILIRUBIN,TOTAL 0.4 mg/dL (0.2-1.0); CREATINE KINASE, TOTAL 222 U/L (26-192); CREATININE 0.75 mg/dL (0.55-1.02); TOTAL PROTEIN 7.8 g/dL (6.4-8.2)
[2021-07-03 19:24] VITALS: BP 121/84
[2021-07-03] MEDS: ATORVASTATIN 20 MG TABLET PO SCH (20:29)
[2021-07-03] MEDS: DOXEPIN 25 MG CAPSULE PO PRN (22:02)
[2021-07-04 07:28] VITALS: BP 120/80
[2021-07-04] MEDS: DIVALPROEX 250 MG TABLET.DR PO SCH ×2 (08:47→20:41)
[2021-07-04] MEDS: SERTRALINE 50MG TABLET PO SCH (08:48)
[2021-07-04 19:21] VITALS: BP 129/86
[2021-07-04] MEDS: DOXEPIN 25 MG CAPSULE PO PRN (20:41)
[2021-07-04] MEDS: ATORVASTATIN 20 MG TABLET PO SCH (20:41)
[2021-07-05 07:31] VITALS: BP 139/89
[2021-07-05] MEDS: DIVALPROEX 250 MG TABLET.DR PO SCH (08:20)
[2021-07-05] MEDS: SERTRALINE 50MG TABLET PO SCH (08:20)
[2021-07-05] MEDS ORDERED: HYDR-826 PO (13:22)
[2021-07-05] MEDS ORDERED: ATOR20TA37 PO (13:22)
[2021-07-05] MEDS ORDERED: SERT50TA28 PO (13:22)
[2021-07-05] MEDS ORDERED: DOXE25CA PO (13:22)
[2021-07-05] MEDS ORDERED: DIVA-59 PO (13:22)
== END 2021-07-05 14:24 | disposition home or self-care (01) | DRG 885 ==
LOC: 3E 17:53
PROVIDERS: ADMIT Psychiatry & Neurology Psychosomatic Medicine; ATTEND Psychiatry & Neurology Psychosomatic Medicine
DX: F31.30 Bipolar disorder, current episode depressed, mild or moderate severity, unspecified (principal); R45.851 Suicidal ideations; F43.10 Post-traumatic stress disorder, unspecified; Z20.822 Contact with and (suspected) exposure to COVID-19; M79.7 Fibromyalgia; M06.9 Rheumatoid arthritis, unspecified; F17.210 Nicotine dependence, cigarettes, uncomplicated; G43.909 Migraine, unspecified, not intractable, without status migrainosus; K59.00 Constipation, unspecified; E78.5 Hyperlipidemia, unspecified; G47.00 Insomnia, unspecified; K21.9 Gastro-esophageal reflux disease without esophagitis; G89.29 Other chronic pain; M62.838 Other muscle spasm; Z91.5 Personal history of self-harm; Z88.1 Allergy status to other antibiotic agents; Z82.49 Family history of ischemic heart disease and other diseases of the circulatory system; Z79.899 Other long term (current) drug therapy
CPT/HCPCS: 36415; 36600; 70450; 71045; 80048; 80053; 80061; 80299; 80307; 80320; 80329; 81001; 82140; 82550; 82803; 82962; 83605; 83735; 84100; 84443; 84478; 84484; 85025; 87040; 87070; 87077; 87081; 87186; 87205; 87426; 93005; 93306; 93356; 94002; 94003; 99285; G0378; J0692; J0696; J1650; J2250; J2405; J2704; J3010; J3370; G0480; J1200; J1630; J2060; J7030; J7040; J7050; J7120; Q0177